=== PATIENT | female | born 1960 | race Hispanic/Latino ===

== ENCOUNTER 2019-03-14 20:15 | Emergency (ER) | payer BC ==
--- OUTSIDE RECORDS SUMMARY | 2019-03-14 20:18 | XMS REPORT ---
:1960 [facility] Address [address] [place] [address] Dr. Duran [address] [place] [id number] Care Team Providers Name Role Phone Unavailable Unavailable Unavailable Problems This patient has no known problems. Allergies, Adverse Reactions, Alerts This patient has no known allergies or adverse reactions. Medications This patient has no known medications.
[2019-03-14] MEDS ORDERED: HYDROCOD 2.5mg-ACETAMIN 108mg/5mL Soln ONE (21:07)
--- NOTE | 2019-03-14 22:04 | ER ---
Nurse's Notes [facility] Name: Gabriela Zabala Age: 58 yrs Sex: Female : 1960 Arrival Date: 03/14/2019 Time: 20:22 Bed 18 Private MD: Diagnosis: Dysphagia, pharyngeal phase Presentation: 03/14 20:30 Presenting complaint: Patient states: I am having pain in my throat for the last 4-5 la1 months on and off but today was really bad. It lasted for about 30 minutes and I felt like I couldn't breathe. Transition of care: patient was not received from another setting of care. Onset of symptoms was March 14, 2019. Risk Assessment: Do you want to hurt yourself or someone else? Patient reports no desire to harm self or others. Initial Sepsis Screen: Does the patient meet any 2 criteria? No. Patient's initial sepsis screen is negative. Does the patient have a suspected source of infection? No. Patient's initial sepsis screen is negative. Care prior to arrival: None. 20:30 Method Of Arrival: Ambulatory la1 20:30 Acuity: DANITA 3 la1 Historical: - Allergies: 20:30 No Known Allergies; la1 - PMHx: 20:30 Hypertension; Diabetes - NIDDM; High Cholesterol; Asthma; la1 - Immunization history:: Adult Immunizations up to date. - Social history:: Smoking status: Patient/guardian denies using tobacco. - Ebola Screening: : No symptoms or risks identified at this time. Screenin:37 Abuse screen: Denies threats or abuse. Denies injuries from another. Nutritional cc3 screening: No deficits noted. Tuberculosis screening: No symptoms or risk factors identified. Fall Risk Ambulatory Aid- None/Bed Rest/Nurse Assist (0 pts). Gait- Normal/Bed Rest/Wheelchair (0 pts) Mental Status- Oriented to own ability (0 pts). Assessment: 20:37 General: Appears in no apparent distress. uncomfortable, Behavior is calm, cooperative, cc3 appropriate for age. Pain: Complains of pain in throat. Neuro: Level of Consciousness is awake, alert, obeys commands, Oriented to person, place, time, situation, Appropriate for age. Cardiovascular: Denies chest pain, Capillary refill < 3 seconds Patient's skin is warm and dry. Respiratory: Airway is patent Respiratory effort is even, unlabored, Respiratory pattern is regular, symmetrical, Breath sounds are clear bilaterally. GI: Abdomen is round. : No signs and/or symptoms were reported regarding the genitourinary system. EENT: Throat with gag reflex present. Derm: Skin is intact, is healthy with good turgor, Skin is pink, warm \T\ dry. normal. Musculoskeletal: Circulation, motion, and sensation intact. Range of motion: intact in all extremities. 21:29 Reassessment: Patient appears in no apparent distress at this time. Patient and/or cc3 family updated on plan of care and expected duration. Pain level reassessed. Patient is alert, oriented x 3, equal unlabored respirations, skin warm/dry/pink. natural gas technician came to do ultrasound bedside. 22:45 Reassessment: Patient appears in no apparent distress at this time. Patient and/or cc3 family updated on plan of care and expected duration. Pain level reassessed. Patient is alert, oriented x 3, equal unlabored respirations, skin warm/dry/pink. GINNA Fry discharged the patient home with prescription given. No IV cannula in situ. Patient left ER vitally stable and ambulatory. No valuables left in the patient's room. Patient denies pain at this time. Patient states feeling better. Patient states symptoms have improved. Vital Signs: 20:28 BP 145 / 75; Pulse 89; Resp 16; Temp 97.6; Pulse Ox 98% on R/A; Weight 71.67 kg; Height la1 4 ft. 11 in. (149.86 cm); 21:45 BP 108 / 61; Pulse 79; Resp 17 S; Pulse Ox 96% on R/A; cc3 22:30 BP 115 / 68; Pulse 85; Resp 16 S; Pulse Ox 98% on R/A; cc3 20:28 Body Mass Index 31.91 (71.67 kg, 149.86 cm) la1 ED Course: 20:22 Patient arrived in ED. am2 20:22 Lisandra Rivas [facility]-C [facility]. snw 20:22 Pavel Heck MD is Attending Physician. snw 20:28 Arm band placed on left wrist. la1 20:31 Triage completed. la1 20:37 Cami Tamayo is Primary Nurse. cc3 20:37 Patient has correct armband on for positive identification. Bed in low position. Call cc3 light in reach. Side rails up X 1. Pulse ox on. NIBP on. 21:59 Ultrasound completed. Patient tolerated well. Notified COMMUNITY DEVELOPMENT SPECIALIST/LAURENCE fry. sg3 21:59 Mary Jade MD is Referral Physician. snw 22:03 Thyroid Para Parotid Gland In Process Unspecified. EDMS 22:45 No provider procedures requiring assistance completed. Patient did not have IV access cc3 during this emergency room visit. Administered Medications: 20:50 Drug: Lortab Liquid 10 ml Route: PO; cc3 21:26 Follow up: Response: No adverse reaction; Pain is decreased cc3 Outcome: 22:00 Discharge ordered by . snw 22:45 Discharged to home ambulatory. cc3 22:45 Condition: stable 22:45 Discharge instructions given to patient, Instructed on discharge instructions, follow up and referral plans. medication usage, Demonstrated understanding of instructions, follow-up care, medications, Prescriptions given X 1. 22:46 Patient left the ED. cc3 Signatures: Dispatcher [employer] EDSD Lisandra Rivas, POULTRY AND FISH BUTCHER-C POULTRY AND FISH BUTCHER-Csnw Rosalio Lovell, RN RN Danna Ramirez Sarah sg3 Cami Tamayo cc3
--- NOTE | 2019-03-14 22:04 | EDPHYS ---
Physician Documentation [facility] Name: Gabriela Zabala Age: 58 yrs Sex: Female : 1960 Arrival Date: 03/14/2019 Time: 20:22 Bed 18 Private MD: ED Physician Pavel Heck HPI: 03/14 21:12 This 58 yrs old Female presents to ER via Ambulatory with complaints of Sore snw Throat, Ear Pain. 21:12 The patient presents with sore throat, dysphagia, of both solids and liquids. The snw patient describes throat pain as suffocating. Onset: The symptoms/episode began/occurred 4 month(s) ago. Severity of symptoms: At their worst the symptoms were moderate, severe. Associated signs and symptoms: Pertinent positives: Sore throat. The patient has experienced similar episodes in the past. The patient has not recently seen a physician. Historical: - Allergies: 20:30 No Known Allergies; la1 - PMHx: 20:30 Hypertension; Diabetes - NIDDM; High Cholesterol; Asthma; la1 - Immunization history:: Adult Immunizations up to date. - Social history:: Smoking status: Patient/guardian denies using tobacco. - Ebola Screening: : No symptoms or risks identified at this time. ROS: 21:10 Constitutional: Negative for fever, chills, and weight loss, Eyes: Negative for injury, snw pain, redness, and discharge, Neck: Negative for injury, pain, and swelling, Cardiovascular: Negative for chest pain, palpitations, and edema, Respiratory: Negative for shortness of breath, cough, wheezing, and pleuritic chest pain, Abdomen/GI: Negative for abdominal pain, nausea, vomiting, diarrhea, and constipation, Back: Negative for injury and pain, : Negative for injury, bleeding, discharge, and swelling, MS/Extremity: Negative for injury and deformity, Skin: Negative for injury, rash, and discoloration, Neuro: Negative for headache, weakness, numbness, tingling, and seizure, Psych: Negative for depression, anxiety, suicide ideation, homicidal ideation, and hallucinations. 21:10 ENT: Positive for difficulty swallowing, sore throat, intermittently for several months. Exam: 21:07 Constitutional: This is a well developed, well nourished patient who is awake, alert, snw and in no acute distress. Head/Face: Normocephalic, atraumatic. Eyes: Pupils equal round and reactive to light, extra-ocular motions intact. Lids and lashes normal. Conjunctiva and sclera are non-icteric and not injected. Cornea within normal limits. Periorbital areas with no swelling, redness, or edema. Neck: Trachea midline, no thyromegaly or masses palpated, and no cervical lymphadenopathy. Supple, full range of motion without nuchal rigidity, or vertebral point tenderness. No Meningismus. Chest/axilla: Normal chest wall appearance and motion. Nontender with no deformity. No lesions are appreciated. Cardiovascular: Regular rate and rhythm with a normal S1 and S2. No gallops, murmurs, or rubs. Normal PMI, no JVD. No pulse deficits. Respiratory: Lungs have equal breath sounds bilaterally, clear to auscultation and percussion. No rales, rhonchi or wheezes noted. No increased work of breathing, no retractions or nasal flaring. Abdomen/GI: Soft, non-tender, with normal bowel sounds. No distension or tympany. No guarding or rebound. No evidence of tenderness throughout. Back: No spinal tenderness. No costovertebral tenderness. Full range of motion. Skin: Warm, dry with normal turgor. Normal color with no rashes, no lesions, and no evidence of cellulitis. MS/ Extremity: Pulses equal, no cyanosis. Neurovascular intact. Full, normal range of motion. Neuro: Awake and alert, GCS 15, oriented to person, place, time, and situation. Cranial nerves II-XII grossly intact. Motor strength 5/5 in all extremities. Sensory grossly intact. Cerebellar exam normal. Normal gait. Psych: Awake, alert, with orientation to person, place and time. Behavior, mood, and affect are within normal limits. 21:07 ENT: Ear canal(s): are normal, TM's: are normal, Nose: is normal, Mouth: Oral mucosa: normal, Tongue: is normal, Mallampatti class IV. Vital Signs: 20:28 BP 145 / 75; Pulse 89; Resp 16; Temp 97.6; Pulse Ox 98% on R/A; Weight 71.67 kg; Height la1 4 ft. 11 in. (149.86 cm); 21:45 BP 108 / 61; Pulse 79; Resp 17 S; Pulse Ox 96% on R/A; cc3 22:30 BP 115 / 68; Pulse 85; Resp 16 S; Pulse Ox 98% on R/A; cc3 20:28 Body Mass Index 31.91 (71.67 kg, 149.86 cm) la1 MDM: 20:35 Patient medically screened. snw 22:02 Data reviewed: vital signs, nurses notes. Data interpreted: Pulse oximetry: on room air snw is 96 %. Interpretation: acceptable. Counseling: I had a detailed discussion with the patient and/or guardian regarding: the historical points, exam findings, and any diagnostic results supporting the discharge/admit diagnosis, radiology results, the need for outpatient follow up, for definitive care, to return to the emergency department if symptoms worsen or persist or if there are any questions or concerns that arise at home. Special discussion: Based on the history and exam findings, there is no indication for further emergent testing or inpatient evaluation. I discussed with the patient/guardian the need to see the ENT specialist for further evaluation of the symptoms. 03/14 20:51 Order name: Thyroid Para Parotid Gland EDMS Administered Medications: 20:50 Drug: Lortab Liquid 10 ml Route: PO; cc3 21:26 Follow up: Response: No adverse reaction; Pain is decreased cc3 Disposition: 03/15 01:34 Co-signature as Attending Physician, Pavel Heck MD. pk Disposition: 03/14/19 22:00 Discharged to Home. Impression: Dysphagia, pharyngeal phase. - Condition is Stable. - Discharge Instructions: Dysphagia, Laryngoscopy. - Prescriptions for acetaminophen- codeine 120-12 mg/5 mL Oral Suspension - take 10 milliliters by ORAL route every 6 hours As needed; 120 milliliter. - Medication Reconciliation Form, Thank You Letter, Antibiotic Education, Prescription Opioid Use form. - Follow up: Emergency Department; When: As needed; Reason: Worsening of condition. Follow up: Mary Jade MD; When: 2 - 3 days; Reason: Recheck today's complaints, Continuance of care, Re-evaluation by your physician. Signatures: Dispatcher [employer] EDMS Pavel Heck MD MD pkl Lisandra Rivas, PEWTER FABRICATOR-C PEWTER FABRICATOR-Csnw Rosalio Lovell RN RN la1 Cami Tamayo cc3 Corrections: (The following items were deleted from the chart) 03/14 22:46 22:00 03/14/2019 22:00 Discharged to Home. Impression: Dysphagia, pharyngeal phase. cc3 Condition is Stable. Forms are Medication Reconciliation Form, Thank You Letter, Antibiotic Education, Prescription Opioid Use. Follow up: Emergency Department; When: As needed; Reason: Worsening of condition. Follow up: Mary Jade; When: 2 - 3 days; Reason: Recheck today's complaints, Continuance of care, Re-evaluation by your physician. snw
--- NOTE | 2019-03-15 08:22 | RAD REPORT ---
EXAM DESCRIPTION: US - Thyroid Para Parotid Gland - 03/14/2019 10:03 pm CLINICAL HISTORY: Neck pain and swelling COMPARISON: None. FINDINGS: Isthmus is 3 mm in thickness. Right lobe is 3.9 x 1.2 x 1.1 cm. Left lobe is 3.3 x 1.1 x 1 .3 cm. Thyroid tissue is homogeneous. No focal mass. No mass or lymphadenopathy in the adjacent soft tissues. IMPRESSION: Negative thyroid ultrasound.
== END 2019-03-14 22:46 | disposition home or self-care (01) ==
LOC: ER 20:15
DX: R13.13 Dysphagia, pharyngeal phase (principal); I10 Essential (primary) hypertension; E11.9 Type 2 diabetes mellitus without complications; E78.00 Pure hypercholesterolemia, unspecified
CPT/HCPCS: 76536; 99284

== ENCOUNTER 2019-04-05 08:36 | Emergency (ER) | payer BC ==
--- OUTSIDE RECORDS SUMMARY | 2019-04-05 08:38 | XMS REPORT ---
:1960 [facility] Address [address] [place] [address] Dr. Duran [address] [place] [id number] Care Team Providers Name Role Phone Unavailable Unavailable Unavailable Problems This patient has no known problems. Allergies, Adverse Reactions, Alerts This patient has no known allergies or adverse reactions. Medications This patient has no known medications.
[2019-04-05] MEDS ORDERED: NA CHLORIDE 0.9% 500 ML ONE (09:31)
[2019-04-05 09:32] LABS: Absolute Lymphocytes (CBC) 1.7 K/uL (0.7-4.9); Basophils % 0.3 % (0-1.3); Hematocrit 41.4 % (36.0-45.0); Lymphocytes % 26.2 % (15.3-44.8); RBC Red Blood Cell Count 4.65 M/uL (3.86-4.86)
--- NOTE | 2019-04-05 09:52 | RAD REPORT ---
EXAM DESCRIPTION: RAD - Chest Single View - 04/05/2019 9:32 am CLINICAL HISTORY: Cough, chest and neck pain COMPARISON: September 2016 TECHNIQUE: AP portable chest image was obtained 0930 hours . FINDINGS: Lungs are clear. Heart and vasculature are normal. No measurable pleural effusion and no p neumothorax. No acute bony abnormality seen. No acute aortic findings suspected. IMPRESSION: No acute cardiopulmonary process. No suspicious interval change.
[2019-04-05 09:55] LABS: ALT/SGPT 26 U/L (12-78); AST/SGOT 18 U/L (15-37); Albumin 3.4 g/dL (3.4-5.0); Alkaline Phosphatase 114 U/L (45-117); BUN Blood Urea Nitrogen 15 mg/dL (7-18); Bicarbonate 25 mmol/L (21-32); Bilirubin Total 0.3 mg/dL (0.2-1.0); Glucose Level 224 mg/dL (74-106); Potassium 3.8 mmol/L (3.5-5.1); Protein, Total 7.7 g/dL (6.4-8.2); Sodium Level 140 mmol/L (136-145); Troponin (Emerg Dept Use Only) < 0.02 ng/mL (0.0-0.045)
[2019-04-05 10:06] LABS: Blood Morphology Comment NOT SEEN (NOT SEEN); Platelet Estimate ADEQ
--- NOTE | 2019-04-05 10:40 | RAD REPORT ---
EXAM DESCRIPTION: CT - Soft Tissue Neck W/Contr - 04/05/2019 10:12 am CLINICAL HISTORY: Episodic anterior throat and neck pain TECHNIQUE: During dynamic enhancement using 100 milliliters nonionic IV contrast, axial 5 millimeter thick images of the neck were obtained. All CT scans are performed using dose optimization technique as appropriate and may include automated exposure control or mA/KV adjustment according to patient size. FINDINGS: Intracranial portion of the examination is unremarkable. Mastoid air cells are clear. Mini mal mucosal thickening with no air-fluid level. No globe or orbital content abnormality. No pharyngeal mucosal mass or asymmetry. Tonsils and tongue base within normal limits. Parapharyngeal fat is normal. Soft palate shows no mass or asymmetry. No epiglottis thickening. No laryngeal mass o r asymmetry. The parotid, submandibular and thyroid gland tissue show no suspicious finding. No abnormal lymphadenopathy or mass in the soft tissues of the neck. A few small sub centimeter nonsp ecific lymph nodes are present. No significant vascular abnormality. Carotid bulb calcifications are present. The patient is edentulous. Small air densities adjacent to the mandible and maxilla are likely relate d to dentures. Infection or inflammatory changes to the soft tissues covering the mandible and and ma xilla are not excluded but can be correlated with clinical exam findings. No mass or asymmetry at the floor the mouth. No gross abnormality of the cervical esophagus. CT assessment is limited. IMPRESSION: Contrast enhanced CT neck imaging showing no significant or suspicious finding. Small fluid and air densities adjacent to the edentulous mandible and maxilla may be related to dentu res. Infectious/inflammatory etiologies are lesser in likelihood but possible and can be correlated w ith clinical exam findings.
[2019-04-05] MEDS ORDERED: CEFTRIAXONE/SWI 1gm 1 GM/10 ML SYR ONE (10:49)
--- NOTE | 2019-04-05 10:51 | ER ---
Nurse's Notes [facility] Name: Gabriela Zabala Age: 58 yrs Sex: Female : 1960 Arrival Date: 04/05/2019 Time: 08:40 Bed 20 Private MD: Navid Gordon R Diagnosis: Chronic pharyngitis;Tobacco abuse counseling;Tobacco use;Type 2 diabetes mellitus Presentation: 04/05 08:45 Presenting complaint: Patient states: anterior neck and throat pain with pressure that ss has been episodic x 1 year. Patient reports it just keeps getting worse. Was seen in ER about a month ago for the same complaints and given a medication which helped, but is out. ENT f/u appt is April 23. Transition of care: patient was not received from another setting of care. Acute neurological deficit: none identified. Onset of symptoms is unknown. Risk Assessment: Do you want to hurt yourself or someone else? Patient reports no desire to harm self or others. Initial Sepsis Screen: Does the patient meet any 2 criteria? RR > 20 per min. Does the patient have a suspected source of infection? No. Patient's initial sepsis screen is negative. Care prior to arrival: None. 08:45 Method Of Arrival: Ambulatory ss 08:45 Acuity: DANITA 3 ss 08:48 Note Patient reports that when the pain occurs, she becomes very anxious. ss Historical: - Allergies: 08:47 No Known Allergies; ss - PMHx: 08:47 Asthma; Diabetes - NIDDM; High Cholesterol; Hypertension; ss - Immunization history:: Adult Immunizations unknown. - Social history:: Smoking status: Patient uses tobacco products, smokes one-half pack cigarettes per day. - Ebola Screening: : Patient denies exposure to infectious person Patient denies travel to an Ebola-affected area in the 21 days before illness onset. - Family history:: not pertinent. Screenin:00 Fall Risk None identified. em 09:08 Abuse screen: Denies threats or abuse. Denies injuries from another. Nutritional ss screening: No deficits noted. Tuberculosis screening: Never had TB. Assessment: 09:00 General: Appears in no apparent distress. comfortable, Behavior is calm, cooperative, em Denies fever. Pain: Complains of pain in neck Pain currently is 3 out of 10 on a pain scale. Neuro: Level of Consciousness is awake, alert, obeys commands, Oriented to person, place, time, situation, [employer] are equal bilaterally Moves all extremities. Gait is steady, Speech is normal. Cardiovascular: Denies chest pain, nausea, shortness of breath, vomiting, Capillary refill < 3 seconds Patient's skin is warm and dry. Chest pain is denied. Respiratory: Airway is patent Respiratory effort is even, unlabored, Respiratory pattern is regular, symmetrical, Breath sounds are clear bilaterally. Denies cough, shortness of breath at rest. GI: Abdomen is round non-distended. EENT: Reports pain when swallowing Denies difficulty swallowing. Derm: Skin is intact, is healthy with good turgor, Skin is pink, warm \T\ dry. Musculoskeletal: Capillary refill < 3 seconds, Range of motion: intact in all extremities. 09:05 General: The previous assessment is accurate, call light remains within reach. ss 10:06 Reassessment: Patient appears in no apparent distress at this time. wheeled to CT via em wheelchair. 10:48 Reassessment: Patient appears in no apparent distress at this time. Patient and/or em family updated on plan of care and expected duration. Pain level reassessed. Patient is alert, oriented x 3, equal unlabored respirations, skin warm/dry/pink. Patient states feeling better. Vital Signs: 08:47 BP 186 / 91; Pulse 60; Resp 21; Temp 98.0(O); Pulse Ox 100% on R/A; Weight 71.67 kg; ss Height 4 ft. 11 in. (149.86 cm); Pain 10/10; 09:30 BP 158 / 63; Pulse 77; Resp 16; Pulse Ox 100% on R/A; em 10:44 BP 145 / 67; Pulse 75; Resp 18; Pulse Ox 99% on R/A; Pain 3/10; em 08:47 Body Mass Index 31.91 (71.67 kg, 149.86 cm) ED Course: 08:40 Patient arrived in ED. as 08:41 Navid Gordon MD is Private Physician. as 08:42 Raffi Jones MD is Attending Physician. day 08:44 Elías Betancourt LVN is Primary Nurse. em 08:47 Triage completed. ss 08:47 Arm band placed on right wrist. ss 09:00 Patient has correct armband on for positive identification. Placed in gown. Bed in low em position. Call light in reach. Pulse ox on. NIBP on. 09:16 Radiology exam delayed due to lab results not completed at this time. (BUN/Creatinine). bq 09:33 Chest Single View XRAY In Process Unspecified. EDMS 09:45 Initial lab(s) drawn, by me, sent to lab. Inserted saline lock: 20 gauge in right em forearm, using aseptic technique. Blood collected. 10:06 CT completed. Patient tolerated procedure well. Patient moved back from CT. bq 10:15 Soft Tissue Neck W/Contr CT In Process Unspecified. EDMS 10:50 Navid Gordon MD is Referral Physician. day 10:50 Mary Jade MD is Referral Physician. day 11:18 No provider procedures requiring assistance completed. IV discontinued, intact, em bleeding controlled, No redness/swelling at site. Pressure dressing applied. Administered Medications: 09:25 Drug: NS 0.9% 500 ml Route: IV; Rate: bolus; Site: right forearm; em 11:18 Follow up: IV Status: Completed infusion; IV Intake: 500ml em 10:45 Drug: Rocephin 1 grams Route: IV; Rate: per protocol; Site: right forearm; ss 11:17 Follow up: Response: No adverse reaction; IV Status: Completed infusion; IV Intake: 10mlem Intake: 11:17 IV: 10ml; Total: 10ml. em 11:18 IV: 500ml; Total: 510ml. em Outcome: 10:50 Discharge ordered by . [facility] 11:21 Discharged to home ambulatory. em 11:21 Condition: good 11:21 Discharge instructions given to patient, Instructed on discharge instructions, follow up and referral plans. medication usage, Demonstrated understanding of instructions, follow-up care, medications, Prescriptions given X 1. 11:21 Patient left the ED. em Signatures: Dispatcher [employer] Raffi Jimenez MD MD cha Quilty, Betty bq Munoz, Edgar, DIRECTOR OF MAINTENANCE DIRECTOR OF MAINTENANCE Korin Chun Shelby, ALANIS RN ss
--- NOTE | 2019-04-05 10:52 | EDPHYS ---
Physician Documentation [facility] Name: Gabriela Zabala Age: 58 yrs Sex: Female : 1960 Arrival Date: 04/05/2019 Time: 08:40 Bed 20 Private MD: Navid Gordon R ED Physician Raffi Jones HPI: 04/05 09:11 This 58 yrs old Female presents to ER via Ambulatory with complaints of Neck day Pain, >24Hrs Old. 09:11 The patient or guardian complains of pain, that is chronic. The symptoms are located on day the chin, right jaw and left jaw. Onset: The symptoms/episode began/occurred 1 year(s) ago. Context: The problem was sustained at an unknown location. Associated signs and symptoms: The patient has no apparent associated signs or symptoms. The pain does not radiate. Severity of symptoms: At their worst the symptoms were mild, in the emergency department the symptoms are actually worse, mildly. The patient has experienced similar episodes in the past, multiple times, chronically. Historical: - Allergies: 08:47 No Known Allergies; ss - PMHx: 08:47 Asthma; Diabetes - NIDDM; High Cholesterol; Hypertension; ss - Immunization history:: Adult Immunizations unknown. - Social history:: Smoking status: Patient uses tobacco products, smokes one-half pack cigarettes per day. - Ebola Screening: : Patient denies exposure to infectious person Patient denies travel to an Ebola-affected area in the 21 days before illness onset. - Family history:: not pertinent. ROS: 09:11 Constitutional: Negative for fever, chills, and weight loss, Eyes: Negative for injury, day pain, redness, and discharge, ENT: Negative for injury, pain, and discharge, Cardiovascular: Negative for chest pain, palpitations, and edema, Respiratory: Negative for shortness of breath, cough, wheezing, and pleuritic chest pain, Abdomen/GI: Negative for abdominal pain, nausea, vomiting, diarrhea, and constipation, Back: Negative for injury and pain, : Negative for injury, bleeding, discharge, and swelling, MS/Extremity: Negative for injury and deformity, Skin: Negative for injury, rash, and discoloration, Neuro: Negative for headache, weakness, numbness, tingling, and seizure, Psych: Negative for depression, anxiety, suicide ideation, homicidal ideation, and hallucinations, Allergy/Immunology: Negative for hives, rash, and allergies, Endocrine: Negative for neck swelling, polydipsia, polyuria, polyphagia, and marked weight changes, Hematologic/Lymphatic: Negative for swollen nodes, abnormal bleeding, and unusual bruising. 09:11 Neck: Positive for pain with movement, swollen nodes, tenderness, of the chin, right jaw and left jaw. Exam: 09:11 Constitutional: This is a well developed, well nourished patient who is awake, alert, day and in no acute distress. Head/Face: Normocephalic, atraumatic. Eyes: Pupils equal round and reactive to light, extra-ocular motions intact. Lids and lashes normal. Conjunctiva and sclera are non-icteric and not injected. Cornea within normal limits. Periorbital areas with no swelling, redness, or edema. ENT: Nares patent. No nasal discharge, no septal abnormalities noted. Tympanic membranes are normal and external auditory canals are clear. Oropharynx with no redness, swelling, or masses, exudates, or evidence of obstruction, uvula midline. Mucous membranes moist. Chest/axilla: Normal chest wall appearance and motion. Nontender with no deformity. No lesions are appreciated. Cardiovascular: Regular rate and rhythm with a normal S1 and S2. No gallops, murmurs, or rubs. Normal PMI, no JVD. No pulse deficits. Respiratory: Lungs have equal breath sounds bilaterally, clear to auscultation and percussion. No rales, rhonchi or wheezes noted. No increased work of breathing, no retractions or nasal flaring. Abdomen/GI: Soft, non-tender, with normal bowel sounds. No distension or tympany. No guarding or rebound. No evidence of tenderness throughout. Back: No spinal tenderness. No costovertebral tenderness. Full range of motion. Skin: Warm, dry with normal turgor. Normal color with no rashes, no lesions, and no evidence of cellulitis. MS/ Extremity: Pulses equal, no cyanosis. Neurovascular intact. Full, normal range of motion. Neuro: Awake and alert, GCS 15, oriented to person, place, time, and situation. Cranial nerves II-XII grossly intact. Motor strength 5/5 in all extremities. Sensory grossly intact. Cerebellar exam normal. Normal gait. Psych: Awake, alert, with orientation to person, place and time. Behavior, mood, and affect are within normal limits. 09:11 Neck: External neck: is normal, no acute changes, C-spine: appears grossly normal, no acute changes, Thyroid: appears normal, no acute changes, Trachea: is midline with no obvious abnormalities, no acute changes, ROM/movement: is normal, no acute changes, pain, is not appreciated, limited range of motion, is not appreciated, Meningeal signs: are not present, Kernig's sign is negative, Brudzinski's sign is negative, nuchal rigidity, is not appreciated, Lymph nodes: no appreciated lymphadenopathy. Vital Signs: 08:47 BP 186 / 91; Pulse 60; Resp 21; Temp 98.0(O); Pulse Ox 100% on R/A; Weight 71.67 kg; ss Height 4 ft. 11 in. (149.86 cm); Pain 10/10; 09:30 BP 158 / 63; Pulse 77; Resp 16; Pulse Ox 100% on R/A; em 10:44 BP 145 / 67; Pulse 75; Resp 18; Pulse Ox 99% on R/A; Pain 3/10; em 08:47 Body Mass Index 31.91 (71.67 kg, 149.86 cm) ss MDM: 08:42 Patient medically screened. [facility] 09:14 Data reviewed: vital signs, nurses notes, lab test result(s), EKG, radiologic studies, [facility] CT scan, plain films. 04/05 09:10 Order name: CBC with Manual Differential; Complete Time: 10:20 04/05 09:10 Order name: Comprehensive Metabolic Panel; Complete Time: 09:56 04/05 09:10 Order name: Soft Tissue Neck W/Contr CT; Complete Time: 10:52 04/05 09:11 Order name: Chest Single View XRAY; Complete Time: 09:54 [facility] 04/05 09:11 Order name: Troponin (emerg Dept Use Only); Complete Time: 09:56 [facility] 04/05 09:11 Order name: EKG; Complete Time: 09:13 [facility] 04/05 09:11 Order name: EKG - Nurse/Tech; Complete Time: 09:43 [facility] Administered Medications: 09:25 Drug: NS 0.9% 500 ml Route: IV; Rate: bolus; Site: right forearm; em 11:18 Follow up: IV Status: Completed infusion; IV Intake: 500ml em 10:45 Drug: Rocephin 1 grams Route: IV; Rate: per protocol; Site: right forearm; ss 11:17 Follow up: Response: No adverse reaction; IV Status: Completed infusion; IV Intake: 10mlem Disposition: 04/05/19 10:50 Discharged to Home. Impression: Chronic pharyngitis, Tobacco abuse counseling, Tobacco use, Type 2 diabetes mellitus. - Condition is Stable. - Discharge Instructions: Type 2 Diabetes Mellitus, Diagnosis, Adult, Pharyngitis, Steps to Quit Smoking, Smoking Hazards, Sore Throat, Steps to Quit Smoking, [id number]ert, Type 2 Diabetes Mellitus, Diagnosis, Adult, [id number]. - Prescriptions for Augmentin 875- 125 mg Oral Tablet - take 1 tablet by ORAL route every 12 hours for 10 days; 14 tablet. - Medication Reconciliation Form, Thank You Letter, Antibiotic Education, Prescription Opioid Use form. - Follow up: Navid Gordon; When: 2 - 3 days; Reason: Recheck today's complaints, Continuance of care, Re-evaluation by your physician. Follow up: Mary Jade MD; When: 2 - 3 days; Reason: Recheck today's complaints, Re-evaluation by your physician. - Problem is new. - Symptoms have improved. Signatures: Dispatcher [employer] Raffi Jimenez MD MD cha Munoz, Edgar, DEVELOPER [employer]STER[employer] DEVELOPER [employer] Bere Zavala RN RN ss Corrections: (The following items were deleted from the chart) 10:50 10:50 04/05/2019 10:50 Discharged to Home. Impression: Chronic pharyngitis; Tobacco day abuse counseling; Tobacco use; Type 2 diabetes mellitus. Condition is Stable. Discharge Instructions: Pharyngitis, Steps to Quit Smoking, Smoking Hazards, Sore Throat, Steps to Quit Smoking, [id number], Type 2 Diabetes Mellitus, Diagnosis, Adult, Type 2 Diabetes Mellitus, Diagnosis, Adult, [id number]. Prescriptions for Augmentin 875-125 mg Oral Tablet - take 1 tablet by ORAL route every 12 hours for 10 days; 14 tablet. and Forms are Medication Reconciliation Form, Thank You Letter, Antibiotic Education, Prescription Opioid Use. Follow up: Navid Gordon; When: 2 - 3 days; Reason: Recheck today's complaints, Continuance of care, Re-evaluation by your physician. Problem is new. Symptoms have improved. [facility] 11:21 10:50 04/05/2019 10:50 Discharged to Home. Impression: Chronic pharyngitis; Tobacco em abuse counseling; Tobacco use; Type 2 diabetes mellitus. Condition is Stable. Discharge Instructions: Pharyngitis, Steps to Quit Smoking, Smoking Hazards, Sore Throat, Steps to Quit Smoking, [id number], Type 2 Diabetes Mellitus, Diagnosis, Adult, Type 2 Diabetes Mellitus, Diagnosis, Adult, [id number]. Prescriptions for Augmentin 875-125 mg Oral Tablet - take 1 tablet by ORAL route every 12 hours for 10 days; 14 tablet. and Forms are Medication Reconciliation Form, Thank You Letter, Antibiotic Education, Prescription Opioid Use. Follow up: Navid Gordon; When: 2 - 3 days; Reason: Recheck today's complaints, Continuance of care, Re-evaluation by your physician. Follow up: Mary Jade; When: 2 - 3 days; Reason: Recheck today's complaints, Re-evaluation by your physician. Problem is new. Symptoms have improved. [facility]
--- NOTE | 2019-04-05 21:14 | EKG ---
Test Date: 2019-04-05 Test Time: 09:36:32 Sas Analyst: MARLIN MEASUREMENT RESULTS: Intervals: Rate: 71 FL: 166 QRSD: 86 QT: 412 QTc: 447 [place]: P: 44 FL: 166 QRS: 46 T: 60 INTERPRETIVE STATEMENTS: Normal sinus rhythm Normal ECG Compared to ECG 07/23/2015 15:42:54 Prolonged QT interval no longer present Electronically Signed On 04-05-19 21:13:25 CDT by Ezio Unger
== END 2019-04-05 11:21 | disposition home or self-care (01) ==
LOC: ER 08:36
DX: J31.2 Chronic pharyngitis (principal); E11.9 Type 2 diabetes mellitus without complications; Z72.0 Tobacco use; Z71.6 Tobacco abuse counseling
CPT/HCPCS: 36415; 70491; 71045; 80053; 84484; 85025; 93005; 96361; 96365; 99284; J0696; Q9967

== ENCOUNTER 2019-08-07 19:41 | Emergency (ER) | payer BC, OTHER ==
--- OUTSIDE RECORDS SUMMARY | 2019-08-07 19:43 | XMS REPORT ---
:1960 [facility] [address] [place] [address] Dr. Duran [address] [place] [id number] Care Team Providers Name Role Phone Unavailable Unavailable Unavailable Problems This patient has no known problems. Allergies, Adverse Reactions, Alerts This patient has no known allergies or adverse reactions. Medications This patient has no known medications.
--- NOTE | 2019-08-07 22:48 | RAD REPORT ---
EXAM DESCRIPTION: Shereen Single View08/07/2019 10:39 pm CLINICAL HISTORY: Chest pain COMPARISON: 03/2019 FINDINGS: The lungs appear clear of acute infiltrate. The heart is normal size IMPRESSION: No acute abnormalities displayed
[2019-08-07 23:19] LABS: Absolute Lymphocytes (CBC) 2.3 K/uL (0.7-4.9); Basophils % 0.2 % (0-1.3); Hematocrit 42.5 % (36.0-45.0); Lymphocytes % 37.6 % (15.3-44.8); MPV 8.2 fL (7.6-11.3); Protime INR 1.04; RBC Red Blood Cell Count 4.88 M/uL (3.86-4.86)
[2019-08-07] MEDS ORDERED: NA CHLORIDE 0.9% 1,000 ML ONE (23:23)
[2019-08-07] MEDS ORDERED: MECLIZINE HCL 12.5 MG TAB ONE (23:23)
[2019-08-07 23:45] LABS: ALT/SGPT 29 U/L (12-78); AST/SGOT 4 U/L (15-37); Albumin 3.7 g/dL (3.4-5.0); Alkaline Phosphatase 154 U/L (45-117); BUN Blood Urea Nitrogen 20 mg/dL (7-18); Bicarbonate 27 mmol/L (21-32); Bilirubin Direct 0.1 mg/dL (0-0.2); Bilirubin Total 0.3 mg/dL (0.2-1.0); Glucose Level 337 mg/dL (74-106); NT PRO-BNP 23 pg/mL (<125); Potassium 3.9 mmol/L (3.5-5.1); Protein, Total 8.4 g/dL (6.4-8.2); Sodium Level 134 mmol/L (136-145); Troponin (Emerg Dept Use Only) < 0.02 ng/mL (0.0-0.045)
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
--- NOTE | 2019-08-08 01:34 | EDPHYS ---
Physician Documentation [facility] Name: Gabriela Zabala Age: 59 yrs Sex: Female : 1960 Arrival Date: 08/07/2019 Time: 19:49 Bed 15 Private MD: ED Physician Raffi Jones HPI: 08/07 23:17 This 59 yrs old Female presents to ER via Ambulatory with complaints of day Dizziness. 23:17 The patient presents with dizziness, generalized weakness. Onset: The symptoms/episode day began/occurred 5 day(s) ago. Context: occurred at an unknown location. Modifying factors: The symptoms are alleviated by closing eyes, holding head still, lying down, the symptoms are aggravated by movement of head, standing up, changing position. Associated signs and symptoms: The patient has no apparent associated signs or symptoms. Severity of symptoms: At their worst the symptoms were mild moderate in the emergency department the symptoms are unchanged. Patient's baseline: Neuro: alert and fully oriented. The patient has not experienced similar symptoms in the past. Historical: - Allergies: 20:37 No Known Allergies; jd3 - Home Meds: 20:37 Metformin Oral [Active]; atorvastatin oral oral [Active]; losartan oral oral [Active]; jd3 clopidogrel oral oral [Active]; [facility] [place] Aspirin oral oral [Active]; - PMHx: 20:37 Asthma; Diabetes - NIDDM; High Cholesterol; Hypertension; jd3 - PSHx: 20:37 Knee surgery; Tubal ligation; jd3 - Immunization history:: Adult Immunizations not up to date. - Social history:: Smoking status: Patient uses tobacco products, smokes one pack cigarettes per day. - Ebola Screening: : Patient negative for fever greater than or equal to 101.5 degrees Fahrenheit, and additional compatible Ebola Virus Disease symptoms. - Family history:: not pertinent. ROS: 23:17 Constitutional: Negative for fever, chills, and weight loss, Eyes: Negative for injury, day pain, redness, and discharge, ENT: Negative for injury, pain, and discharge, Neck: Negative for injury, pain, and swelling, Cardiovascular: Negative for chest pain, palpitations, and edema, Respiratory: Negative for shortness of breath, cough, wheezing, and pleuritic chest pain, Abdomen/GI: Negative for abdominal pain, nausea, vomiting, diarrhea, and constipation, Back: Negative for injury and pain, : Negative for injury, bleeding, discharge, and swelling, MS/Extremity: Negative for injury and deformity, Skin: Negative for injury, rash, and discoloration, Psych: Negative for depression, anxiety, suicide ideation, homicidal ideation, and hallucinations, Allergy/Immunology: Negative for hives, rash, and allergies, Endocrine: Negative for neck swelling, polydipsia, polyuria, polyphagia, and marked weight changes, Hematologic/Lymphatic: Negative for swollen nodes, abnormal bleeding, and unusual bruising. 23:17 Neuro: Positive for dizziness, weakness. Exam: 23:17 Constitutional: This is a well developed, well nourished patient who is awake, alert, day and in no acute distress. Head/Face: Normocephalic, atraumatic. Eyes: Pupils equal round and reactive to light, extra-ocular motions intact. Lids and lashes normal. Conjunctiva and sclera are non-icteric and not injected. Cornea within normal limits. Periorbital areas with no swelling, redness, or edema. ENT: Nares patent. No nasal discharge, no septal abnormalities noted. Tympanic membranes are normal and external auditory canals are clear. Oropharynx with no redness, swelling, or masses, exudates, or evidence of obstruction, uvula midline. Mucous membranes moist. Neck: Trachea midline, no thyromegaly or masses palpated, and no cervical lymphadenopathy. Supple, full range of motion without nuchal rigidity, or vertebral point tenderness. No Meningismus. Chest/axilla: Normal chest wall appearance and motion. Nontender with no deformity. No lesions are appreciated. Cardiovascular: Regular rate and rhythm with a normal S1 and S2. No gallops, murmurs, or rubs. Normal PMI, no JVD. No pulse deficits. Respiratory: Lungs have equal breath sounds bilaterally, clear to auscultation and percussion. No rales, rhonchi or wheezes noted. No increased work of breathing, no retractions or nasal flaring. Abdomen/GI: Soft, non-tender, with normal bowel sounds. No distension or tympany. No guarding or rebound. No evidence of tenderness throughout. Back: No spinal tenderness. No costovertebral tenderness. Full range of motion. Skin: Warm, dry with normal turgor. Normal color with no rashes, no lesions, and no evidence of cellulitis. MS/ Extremity: Pulses equal, no cyanosis. Neurovascular intact. Full, normal range of motion. Neuro: Awake and alert, GCS 15, oriented to person, place, time, and situation. Cranial nerves II-XII grossly intact. Motor strength 5/5 in all extremities. Sensory grossly intact. Cerebellar exam normal. Normal gait. Psych: Awake, alert, with orientation to person, place and time. Behavior, mood, and affect are within normal limits. 23:17 Eyes: Periorbital structures: appear normal, no acute changes, Pupils: no acute changes, equal, round, and reactive to light and accomodation, Extraocular movements: intact throughout, Conjunctiva: normal, no acute changes, Corneas: are normal, no acute changes, Sclera: no appreciated abnormality, no acute changes, Anterior chamber: normal, no acute changes, Lids and lashes: appear normal, no evidence of trauma, Nystagmus: is not appreciated, no acute changes. Vital Signs: 20:38 BP 156 / 85; Pulse 85; Resp 17 S; Temp 97.9(TE); Pulse Ox 97% on R/A; Weight 72.57 kg jd3 (R); Height 4 ft. 11 in. (149.86 cm) (R); Pain 3/10; 23:15 BP 168 / 80; Pulse 84; Resp 18; Pulse Ox 97% on R/A; aj1 08/08 00:43 BP 147 / 93; Pulse 82; Resp 18; Pulse Ox 98% on R/A; aj1 01:55 BP 152 / 88; Pulse 85; Resp 18; Pulse Ox 97% on R/A; aj1 02:57 BP 148 / 82; Pulse 88; Resp 18; Pulse Ox 99% on R/A; [facility] 08/07 20:38 Body Mass Index 32.32 (72.57 kg, 149.86 cm) jd3 MDM: 08/07 22:26 Patient medically screened. [facility] 23:20 Data reviewed: vital signs, nurses notes, lab test result(s), EKG, radiologic studies, [facility] CT scan, plain films. 08/07 22:15 Order name: Basic Metabolic Panel [facility] 08/07 22:15 Order name: CBC with Diff [facility] 08/07 22:15 Order name: LFT's [facility] 08/07 22:15 Order name: Magnesium [facility] 08/07 22:15 Order name: NT PRO-BNP [facility] 08/07 22:15 Order name: PT-INR [facility] 08/07 22:15 Order name: Troponin (emerg Dept Use Only) [facility] 08/07 23:17 Order name: Urine Culture [facility] 08/07 23:20 Order name: Protime (+INR); Complete Time: 01: [facility] 08/07 23:23 Order name: CBC with Automated Diff; Complete Time: : [facility] 08/07 23:46 Order name: Basic Metabolic Panel; Complete Time: : [facility] 08/07 23:46 Order name: Liver (Hepatic) Function; Complete Time: : [facility] 08/07 23:46 Order name: Troponin (Emerg Dept Use Only); Complete Time: [facility] 08/07 23:46 Order name: NT PRO-BNP; Complete Time: : [facility] 08/07 22:15 Order name: XRAY Chest (1 view) [facility] 08/07 22:15 Order name: EKG; Complete Time: 22:17 [facility] 08/07 22:15 Order name: Cardiac monitoring; Complete Time: 22:24 [facility] 08/07 22:15 Order name: EKG - Nurse/Tech; Complete Time: 22:24 [facility] 08/07 22:15 Order name: IV Saline Lock; Complete Time: 22:51 [facility] 08/07 22:50 Order name: RAD; Complete Time: 23:16 [facility] 08/07 23:17 Order name: CT Head C Spine [facility] 08/07 23:46 Order name: Magnesium; Complete Time: :29 [facility] 08/08 00:57 Order name: Urine Dipstick--Ancillary (enter results) [facility] 08/08 02:13 Order name: Glucose, Ancillary Testing [facility] 08/08 02:45 Order name: Urine Dipstick-Ancillary [facility] 08/07 22:15 Order name: Labs collected and sent; Complete Time: 22:51 [facility] 08/07 22:15 Order name: O2 Per Protocol; Complete Time: 22:24 [facility] 08/07 22:15 Order name: O2 Sat Monitoring; Complete Time: 22:24 [facility] Administered Medications: 23:32 Drug: NS 0.9% 1000 ml Route: IV; Rate: 1 bolus; Site: right antecubital; aj08/08 02:56 Follow up: IV Status: Completed infusion; IV Intake: 1000ml 08/07 23:32 Drug: Meclizine 25 mg Route: PO; 08/08 02:56 Follow up: Response: No adverse reaction 02:22 Drug: LanTUS 30 units Route: Sub-Q; Site: left lower abdomen; 02:55 Follow up: Response: No adverse reaction :22 Drug: Aspirin Chewable Tablet 162 mg Route: PO; :55 Follow up: Response: No adverse reaction :23 Drug: Insulin Regular Human 8 units {Co-Signature: jerome (Denia Rawls RN).} Route: IVP; Site: right antecubital; 02:56 Follow up: Response: No adverse reaction; Blood sugar is lowered Point of Care Testing: Blood Glucose: Blood Glucose: 358 mg/dL; Ranges: Critical Glucose Levels:Adult <50 mg/dl or >400 mg/dl <40 mg/dl or >180 mg/dl Disposition: 08/08/19 01:32 Discharged to Home. Impression: Dizziness and giddiness, Type 2 diabetes mellitus, Essential (primary) hypertension. - Condition is Stable. - Discharge Instructions: Type 2 Diabetes Mellitus, Diagnosis, Adult, Dizziness, Hypertension, Hypertension, Arly-la-Vufr, Aspirin and Your Heart, Type 2 Diabetes Mellitus, Diagnosis, Adult, Eovg-pc-Livy, Dizziness, Ucvp-tu-Zehh, Managing Your Hypertension. - Prescriptions for Meclizine 25 mg Oral Tablet - take 1 tablet by ORAL route every 8 hours As needed; 30 tablet. - Work release form, Medication Reconciliation Form, Thank You Letter, Antibiotic Education, Prescription Opioid Use form. - Follow up: Private Physician; When: 2 - 3 days; Reason: Recheck today's complaints, Continuance of care, Re-evaluation by your physician. Follow up: Omar Dotson MD; When: 2 - 3 days; Reason: Recheck today's complaints, Re-evaluation by your physician. - Problem is new. - Symptoms have improved. Signatures: Dispatcher [employer] Keila Avila RN RN aj1 Raffi Jones MD MD cha Davies, Jonathon RN RN jd3 Denia Rawls RN bb Corrections: (The following items were deleted from the chart) :33 01:32 08/08/2019 01:32 Discharged to Home. Impression: Dizziness and giddiness; Type 2 day diabetes mellitus. Condition is Stable. Forms are Medication Reconciliation Form, Thank You Letter, Antibiotic Education, Prescription Opioid Use. Follow up: Private Physician; When: 2 - 3 days; Reason: Recheck today's complaints, Continuance of care, Re-evaluation by your physician. Problem is new. Symptoms have improved. day :34 01:33 08/08/2019 01:32 Discharged to Home. Impression: Dizziness and giddiness; Type 2 day diabetes mellitus; Essential (primary) hypertension. Condition is Stable. Forms are Medication Reconciliation Form, Thank You Letter, Antibiotic Education, Prescription Opioid Use. Follow up: Private Physician; When: 2 - 3 days; Reason: Recheck today's complaints, Continuance of care, Re-evaluation by your physician. Problem is new. Symptoms have improved. day 02:58 01:34 08/08/2019 01:32 Discharged to Home. Impression: Dizziness and giddiness; Type 2 aj1 diabetes mellitus; Essential (primary) hypertension. Condition is Stable. Forms are Medication Reconciliation Form, Thank You Letter, Antibiotic Education, Prescription Opioid Use. Follow up: Private Physician; When: 2 - 3 days; Reason: Recheck today's complaints, Continuance of care, Re-evaluation by your physician. Follow up: Omar Dotson; When: 2 - 3 days; Reason: Recheck today's complaints, Re-evaluation by your physician. Problem is new. Symptoms have improved. day
[2019-08-08] MEDS ORDERED: INSULIN -REGULAR HUMAN 50 UNIT/0.5 ML ML ONE (01:43)
[2019-08-08] MEDS ORDERED: ASPIRIN 81 MG CHEWABLE TABLET ONE (02:00)
[2019-08-08] MEDS ORDERED: INSULIN GLARGINE 100 UNITS/ML SQ ONE (02:04)
[2019-08-08 02:44] LABS: Urine Blood NEGATIVE (NEG); Urine Glucose 2+ (NEG); Urine Protein NEGATIVE (NEG); Urine pH 5.5 (5.0-7.0)
--- NOTE | 2019-08-08 08:21 | EKG ---
Test Date: 2019-08-07 Test Time: 22:17:47 Shredding Machine Operator: LMT MEASUREMENT RESULTS: Intervals: Rate: 85 MT: 150 QRSD: 88 QT: 372 QTc: 442 [place]: P: 40 MT: 150 QRS: 6 T: 61 INTERPRETIVE STATEMENTS: Normal sinus rhythm Normal ECG Compared to ECG 04/05/2019 09:36:32 No significant changes Electronically Signed On 08-08-19 08:20:49 AMBULANCE MECHANIC by Ezio Unger
[2019-08-08 09:47] VITALS: TEMP 97.9
[2019-08-08 09:53] VITALS: BP 148/82; O2SAT 99
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
== END 2019-08-08 02:58 | disposition home or self-care (01) ==
LOC: ER 19:41
DX: E11.9 Type 2 diabetes mellitus without complications (principal); I10 Essential (primary) hypertension; E78.00 Pure hypercholesterolemia, unspecified; Z79.82 Long term (current) use of aspirin; F17.210 Nicotine dependence, cigarettes, uncomplicated
CPT/HCPCS: 96361; 93005; 87088; 85025; 87086; 80048; 36415; 83735; 85610; 82947 ×2; 80076; 81003; 84484; 83880; 70450; 72125; 71045; 96372; 96374; 99284; J8597; J1815; J7030

== ENCOUNTER 2020-09-22 00:02 | Emergency (ER) | payer BC, SELFPAY ==
--- OUTSIDE RECORDS SUMMARY | 2020-09-22 00:05 | XMS REPORT | Continuity of Care Document ---
:1960 Author Organization [facility] t Address [address] [place] [address] Care Team Providers Name Role Phone Pob, Lab Main Attending Clinician Unavailable Doctor Unassigned, Name Attending Clinician Unavailable Problems This patient has no known problems. Allergies, Adverse Reactions, Alerts This patient has no known allergies or adverse reactions. Medications This patient has no known medications. Procedures This patient has no known procedures. Encounters Start End Encounter Admission Attending Care Care Encounter Source Date/Time Date/Time Type Type Clinicians Facility Department ID 2020-02-03 2020-02-03 Wire Spooler Maldonado Davidson [facility] [id number] 14:22:20 14:37:20 Visit Lab Main [place] [id number] [place] [id number] [place] [id number] [address] 2020-02-03 2020-02-03 Orders Doctor BRUNO [id number] 00:00:00 00:00:00 Only Unassigned, BENJI [id number] [place] [facility] [id number] Results This patient has no known results.
[2020-09-22] MEDS ORDERED: ONDANSETRON 4 MG/2 ML VIAL ONE (00:50)
[2020-09-22] MEDS ORDERED: MORPHINE 2 MG/ML SYR ONE (00:50)
[2020-09-22 01:11] LABS: Absolute Lymphocytes (CBC) 2.9 K/uL (0.7-4.9); Basophils % 0.6 % (0-1.3); Hematocrit 40.5 % (36.0-45.0); Lymphocytes % 38.9 % (15.3-44.8); MPV 8.1 fL (7.6-11.3); RBC Red Blood Cell Count 4.66 M/uL (3.86-4.86)
[2020-09-22 01:12] LABS: Urine Bacteria <20 /HPF (<20); Urine RBC <5 /HPF (NONE SEEN)
[2020-09-22 01:20] LABS: ALT/SGPT 14 U/L (12-78); AST/SGOT 13 U/L (15-37); Albumin 3.6 g/dL (3.4-5.0); Alkaline Phosphatase 108 U/L (45-117); BUN Blood Urea Nitrogen 21 mg/dL (7-18); Bicarbonate 25 mmol/L (21-32); Bilirubin Direct < 0.1 mg/dL (0-0.2); Bilirubin Total 0.3 mg/dL (0.2-1.0); Glucose Level 153 mg/dL (74-106); Lipase 56 U/L (73-393); Potassium 3.8 mmol/L (3.5-5.1); Protein, Total 8.1 g/dL (6.4-8.2); Sodium Level 138 mmol/L (136-145)
[2020-09-22 01:36] LABS: Urine Blood TRACE (NEG); Urine Glucose NEGATIVE (NEG); Urine Protein NEGATIVE (NEG); Urine pH 5.5 (5.0-7.0)
--- NOTE | 2020-09-22 02:31 | ER ---
Nurse's Notes [facility] Name: Gabriela Zabala Age: 60 yrs Sex: Female : 1960 Arrival Date: 09/22/2020 Time: 00:05 Bed 7 Private MD: aNvid Gordon R Diagnosis: Abdominal tenderness;Type 2 diabetes mellitus Presentation: 09/22 00:12 Chief complaint: Patient states: LEFT FLANK PAIN STARTED YESTERDAY, WITH NAUSEA. DENIES rv FEVER. NO HISTORY OF KIDNEY STONES. Coronavirus screen: Client denies travel out of the [place] in the last 14 days. Ebola Screen: No symptoms or risks identified at this time. Initial Sepsis Screen: Does the patient meet any 2 criteria? No. Patient's initial sepsis screen is negative. Does the patient have a suspected source of infection? No. Patient's initial sepsis screen is negative. Risk Assessment: Do you want to hurt yourself or someone else? Patient reports no desire to harm self or others. Onset of symptoms was September 21, 2020. 00:12 Method Of Arrival: Ambulatory rv 00:12 Acuity: DANITA 3 rv Triage Assessment: 00:13 General: Appears comfortable, Behavior is calm, cooperative. Pain: Complains of pain in rv LEFT FLANK. EENT: No signs and/or symptoms were reported regarding the EENT system. Neuro: Level of Consciousness is awake, alert, obeys commands, Oriented to person, place, time, situation. Cardiovascular: Patient's skin is warm and dry. Respiratory: Airway is patent Respiratory effort is even, unlabored, Breath sounds are clear bilaterally. Derm: Skin is intact. Historical: - Allergies: 00:20 No Known Allergies; rv - PMHx: 00:13 Asthma; Diabetes - NIDDM; High Cholesterol; Hypertension; rv - PSHx: 00:20 None; rv - Immunization history:: Adult Immunizations up to date. - Social history:: Smoking status: Patient denies any tobacco usage or history of. Screenin:14 Abuse screen: Denies threats or abuse. Denies injuries from another. Nutritional rv screening: No deficits noted. Tuberculosis screening: No symptoms or risk factors identified. Fall Risk None identified. Vital Signs: 00:19 BP 172 / 69; Pulse 93; Resp 16; Temp 98.7; Pulse Ox 99% ; Weight 72.57 kg; Height 4 ft. rv 11 in. (149.86 cm); Pain 5/10; 01:00 BP 159 / 66; Pulse 77; Resp 17; Pulse Ox 98% on R/A; rv 02:45 BP 138 / 86; Pulse 76; Resp 16; Temp 98.5; Pulse Ox 98% on R/A; rv 00:19 Body Mass Index 32.32 (72.57 kg, 149.86 cm) rv ED Course: 00:05 Patient arrived in ED. es 00:05 Navid Gordon MD is Private Physician. es 00:06 Gilson Del Rio, RN is Primary Nurse. rv 00:08 Raffi Rahman PA is PHCP. cp 00:08 Raffi Jones MD is Attending Physician. cp 00:13 Triage completed. rv 00:14 Arm band placed on right wrist. Patient placed in the treatment room, on a stretcher, rv Patient notified of wait time. 00:14 Patient has correct armband on for positive identification. Pulse ox on. NIBP on. rv 00:21 Urine Dipstick--Ancillary (enter results) Sent. ds4 00:38 Initial lab(s) drawn, by id, sent to lab. Inserted saline lock: 20 gauge in right rv antecubital area, using aseptic technique. Blood collected. by liseth. 01:44 CT Abd/Pelvis - IV Contrast Only In Process Unspecified. EDMS 02:30 Navid Gordon MD is Referral Physician. day 02:43 No provider procedures requiring assistance completed. IV discontinued, intact, ea bleeding controlled, No redness/swelling at site. Pressure dressing applied. Administered Medications: 00:38 Drug: Zofran (Ondansetron) 4 mg Route: IVP; Site: right antecubital; rv 02:44 Follow up: Response: No adverse reaction ea 00:38 Drug: morphine 2 mg Route: IVP; Site: right antecubital; rv 02:45 Follow up: Response: No adverse reaction; Marked relief of symptoms; Pain is decreased; rv RASS: Alert and Calm (0) 02:40 Drug: Pepcid 20 mg Route: IVP; Site: right antecubital; ea 02:44 Follow up: Response: Medication administered at discharge. rv Outcome: 02:31 Discharge ordered by . day 02:45 Discharged to home ambulatory. rv 02:45 Condition: good 02:45 Discharge instructions given to patient, Instructed on discharge instructions, follow up and referral plans. medication usage, Demonstrated understanding of instructions, follow-up care, medications, Prescriptions given X 3. 02:46 Patient left the ED. rv Signatures: Dispatcher [employer] Raffi Jimenez MD MD cha Salyer, Edna es Swanson, Donovan ds4 Raffi Rahman, Cindy Cotton cp, RN RN Gilson Pastor RN RN rv
--- NOTE | 2020-09-22 02:31 | EDPHYS ---
Physician Documentation [facility] Name: Gabriela Zabala Age: 60 yrs Sex: Female : 1960 Arrival Date: 09/22/2020 Time: 00:05 Bed 7 Private MD: Navid Gordon R ED Physician Raffi Jones HPI: 09/22 00:26 This 60 yrs old Female presents to ER via Ambulatory with complaints of Flank cp Pain. 00:26 The patient complains of pain in the left flank. The pain does not radiate. Onset: The cp symptoms/episode began/occurred yesterday morning. Associated signs and symptoms: Pertinent positives: nausea, Pertinent negatives: diarrhea, dysuria, fever, vomiting, constipation. Severity of pain: in the emergency department the pain is unchanged despite home interventions. Historical: - Allergies: 00:20 No Known Allergies; rv - PMHx: 00:13 Asthma; Diabetes - NIDDM; High Cholesterol; Hypertension; rv - PSHx: 00:20 None; rv - Immunization history:: Adult Immunizations up to date. - Social history:: Smoking status: Patient denies any tobacco usage or history of. ROS: 00:30 Abdomen/GI: Positive for abdominal pain, nausea, of the left upper quadrant. cp 00:30 Back: Positive for flank pain, on the left. 00:30 Eyes: Negative for injury, pain, redness, and discharge. cp 00:30 Constitutional: Negative for body aches, chills, fever, poor PO intake. 00:30 Cardiovascular: Negative for chest pain, palpitations. 00:30 Respiratory: Negative for cough, shortness of breath, wheezing. 00:30 : Negative for urinary symptoms. 00:30 Skin: Negative for cellulitis, rash. 00:30 Neuro: Negative for altered mental status, headache, weakness. 00:30 All other systems are negative. Exam: 00:33 Constitutional: The patient appears in no acute distress, alert, awake, non-toxic, well cp developed, well nourished. 00:33 Head/Face: Normocephalic, atraumatic. cp 00:33 Eyes: Periorbital structures: appear normal, Conjunctiva: normal, no exudate, no injection, Sclera: no appreciated abnormality, Lids and lashes: appear normal, bilaterally. 00:33 ENT: External ear(s): are unremarkable, Nose: is normal, Posterior pharynx: Airway: no evidence of obstruction, patent. 00:33 Chest/axilla: Inspection: normal, Palpation: is normal, no crepitus, no tenderness. 00:33 Cardiovascular: Rate: normal, Rhythm: regular. 00:33 Respiratory: the patient does not display signs of respiratory distress, Respirations: normal, no use of accessory muscles, no retractions, labored breathing, is not present, Breath sounds: are clear throughout, no decreased breath sounds. 00:33 Abdomen/GI: Inspection: abdomen appears normal, Bowel sounds: active, all quadrants, Palpation: soft, in all quadrants, moderate abdominal tenderness, in the anterior aspect of left lateral abdomen and left upper quadrant, rebound tenderness, is not appreciated, voluntary guarding, is not appreciated, involuntary guarding, is not appreciated. 00:33 Back: CVA tenderness, is absent. 00:33 Skin: no rash present. 02:33 Neck: Exam negative for acute changes. day 02:33 Musculoskeletal/extremity: DVT Exam: No signs of deep vein thrombosis. no pain, no day swelling, no tenderness, negative Homans' sign noted on exam, no appreciated bluish discoloration, no erythema, no increased warmth. Vital Signs: 00:19 BP 172 / 69; Pulse 93; Resp 16; Temp 98.7; Pulse Ox 99% ; Weight 72.57 kg; Height 4 ft. rv 11 in. (149.86 cm); Pain 5/10; 01:00 BP 159 / 66; Pulse 77; Resp 17; Pulse Ox 98% on R/A; rv 02:45 BP 138 / 86; Pulse 76; Resp 16; Temp 98.5; Pulse Ox 98% on R/A; rv 00:19 Body Mass Index 32.32 (72.57 kg, 149.86 cm) rv MDM: 00:14 Patient medically screened. cp 00:45 Differential diagnosis: nephrolithiasis, pyelonephritis, UTI, pancreatitis, cp diverticulitis. 02:28 Data reviewed: vital signs, nurses notes, lab test result(s), radiologic studies, CT day scan. Data interpreted: air sampling and monitoring: rate is 93 beats/min, rhythm is regular, Pulse oximetry: on room air is 99 %. Test interpretation: by ED physician or midlevel provider:. Counseling: I had a detailed discussion with the patient and/or guardian regarding: the historical points, exam findings, and any diagnostic results supporting the discharge/admit diagnosis, lab results, radiology results, the need for outpatient follow up, for definitive care, a family practitioner, a driver guide. 09/22 00:20 Order name: Urine Dipstick--Ancillary (enter results) ds4 09/22 00:20 Order name: Urine Dipstick-Ancillary; Complete Time: 02:10 EDMS 09/22 00:21 Order name: Basic Metabolic Panel 09/22 00:21 Order name: CBC with Diff; Complete Time: 01:16 cp 09/22 00:21 Order name: Hepatic Function; Complete Time: 01:25 cp 09/22 00:21 Order name: Lipase; Complete Time: 01:25 09/22 00:21 Order name: IV Saline Lock; Complete Time: 00:38 09/22 00:21 Order name: Urine Microscopic Only; Complete Time: 01:16 09/22 01:16 Interpretation: Reviewed. 09/22 00:22 Order name: Basic Metabolic Panel; Complete Time: 01:25 EDMS 09/22 01:26 Interpretation: Normal except: GLUC 153; BUN 21. 09/22 00:42 Order name: CT Abd/Pelvis - IV Contrast Only 09/22 02:23 Order name: CREATININE WHOLE BLOOD EDMS 09/22 00:21 Order name: Labs collected and sent; Complete Time: 00:38 cp Administered Medications: 00:38 Drug: Zofran (Ondansetron) 4 mg Route: IVP; Site: right antecubital; rv 02:44 Follow up: Response: No adverse reaction ea 00:38 Drug: morphine 2 mg Route: IVP; Site: right antecubital; rv 02:45 Follow up: Response: No adverse reaction; Marked relief of symptoms; Pain is decreased; rv RASS: Alert and Calm (0) 02:40 Drug: Pepcid 20 mg Route: IVP; Site: right antecubital; ea 02:44 Follow up: Response: Medication administered at discharge. rv Disposition: 02:28 Co-signature as Attending Physician, Raffi Jones MD I agree with the assessment and day plan of care. Disposition: 09/22/20 02:31 Discharged to Home. Impression: Abdominal tenderness, Type 2 diabetes mellitus. - Condition is Stable. - Discharge Instructions: Abdominal Pain, Adult, Abdominal Pain, Adult, [id number]-dp-Svyg. - Prescriptions for Bentyl 20 mg Oral Tablet - take 1 tablet by ORAL route every 6 hours As needed; 20 tablet. Pepcid 20 mg Oral Tablet - take 1 tablet by ORAL route every 12 hours for 10 days; 20 tablet. Valtrex 1 g Oral Tablet - take 1 tablet by ORAL route every 8 hours for 7 days; 21 tablet. - Medication Reconciliation Form, Thank You Letter, Antibiotic Education, Prescription Opioid Use form. - Follow up: Navid Gordon MD; When: 2 - 3 days; Reason: Recheck today's complaints, Continuance of care, Re-evaluation by your physician. - Problem is new. - Symptoms have improved. Signatures: Dispatcher [employer] EDRaffi Chaney MD MD cha Page, Corey, PA Cindy Rodrigues cp, RN RN Gilson Pastor RN RN rv Corrections: (The following items were deleted from the chart) 02:46 02:31 09/22/2020 02:31 Discharged to Home. Impression: Abdominal tenderness; Type 2 rv diabetes mellitus. Condition is Stable. Forms are Medication Reconciliation Form, Thank You Letter, Antibiotic Education, Prescription Opioid Use. Follow up: Navid Gordon; When: 2 - 3 days; Reason: Recheck today's complaints, Continuance of care, Re-evaluation by your physician. Problem is new. Symptoms have improved. day
[2020-09-22] MEDS ORDERED: FAMOTIDINE 20 MG/2 ML VIAL IV ONE (02:51)
[2020-09-22 02:56] VITALS: BP 138/86; TEMP 98.5; O2SAT 98
--- NOTE | 2020-09-22 10:57 | RAD REPORT ---
EXAM DESCRIPTION: CT Abdomen and Pelvis With Intravenous Contrast CLINICAL HISTORY: The patient is 60 years old and is Female; left flank pain TECHNIQUE: Axial computed tomography images of the abdomen and pelvis with intravenous contrast. S agittal and coronal reformatted images were created and reviewed. This CT exam was performed using one or more of the following dose reduction techniques: automated exposure control, adjustment of t he mA and/or kV according to patient size, and/or use of iterative reconstruction technique. COMPARISON: No relevant prior studies available. FINDINGS: LUNG BASES: Unremarkable. No mass. No consolidation. ABDOMEN: LIVER: The liver is mildly fatty and enlarged. GALLBLADDER AND BILE DUCTS: No calcified stones. No ductal dilation. PANCREAS: Fatty infiltration of the pancreas is present. SPLEEN: A splenule is present in the left upper quadrant. The spleen is unremarkable. ADRENALS: Unremarkable. No mass. KIDNEYS AND URETERS: Unremarkable. The kidneys enhance symmetrically. No obstructing renal or ur eteral calculus is seen. No hydronephrosis or hydroureter. No perinephric fluid or stranding. STOMACH AND BOWEL: The stomach is distended with food contents. The small bowel is relatively no rmal in caliber. A moderate amount stool is present throughout colon. There is no mucosal thickening or evidence of bowel obstruction. PELVIS: APPENDIX: The appendix is normal in caliber without surrounding inflammation. BLADDER: Unremarkable. No mass. REPRODUCTIVE: Unremarkable as visualized. ABDOMEN and PELVIS: INTRAPERITONEAL SPACE: Unremarkable. No free air. No significant fluid collection. BONES/JOINTS: No acute fracture. SOFT TISSUES: The soft tissues are normal. VASCULATURE: Atherosclerosis of the vasculature is present. The vessels are normal in caliber. No abdominal aortic aneurysm. LYMPH NODES: Unremarkable. No enlarged lymph nodes. IMPRESSION: No acute findings on this contrasted CT of the abdomen and pelvis to explain the patient 's symptoms. Electronically signed by: Sandhya Pardo MD 09/22/2020 2:06 AM AGILE JAVA DEVELOPER Due to temporary technical issues with the PACS/Fluency reporting system, reports are being signed by the in house radiologist without review as a courtesy to ensure prompt reporting. The interpreting r adiologist is fully responsible for the content of the report.
== END 2020-09-22 02:46 | disposition home or self-care (01) ==
LOC: ER 00:02
DX: R10.819 Abdominal tenderness, unspecified site (principal); E11.9 Type 2 diabetes mellitus without complications; I10 Essential (primary) hypertension
CPT/HCPCS: 85025; 80048; 36415; 82565; 80076; 83690; 74177; 96375; 96374; 99284; Q9967; J2270; J2405; 81003; 81015

== ENCOUNTER 2021-08-01 20:37 | Emergency (ER) | payer BC ==
--- OUTSIDE RECORDS SUMMARY | 2021-08-01 21:18 | XMS REPORT | Continuity of Care Document ---
:1960 Author Organization [facility] t Address [address] [place] [address] Care Team Providers Name Role Phone Pob, Lab Main Attending Clinician Unavailable Christine FERREIRA Attending Clinician Unavailable Doctor Unassigned, Name Attending Clinician Unavailable Payers Payer Name Policy Type Policy Number Effective Date Expiration Date S ource [employer] FED [employer] [id number] 2013 00:00:00 Problems This patient has no known problems. Allergies, Adverse Reactions, Alerts Allergy Allergy Status Severity Reaction(s) Onset Inactive Treating Comm ents Source Name Type Date Date Clinician NO KNOWN Drug Active [facility] of [facility] Medications This patient has no known medications. Procedures This patient has no known procedures. Encounters Start End Encounter Admission Attending Care Care Encounter Source Date/Time Date/Time Type Type Clinicians Facility Department ID 2020-02-03 2020-02-03 Welder Fitter Maldonado Davidson [facility] [id number] 14:22:20 14:37:20 Visit Lab Main [place] [id number] [place] [id number] [place] [id number] [address] 2020-02-03 2020-02-03 Outpatient R JADON [facility] [id number] [facility] 14:15:00 14:15:00 MOHINI Borja [facility] 2020-02-03 2020-02-03 Orders Doctor CARR [id number] 00:00:00 00:00:00 Only Unassigned, BENJI [id number] [place] [facility] [id number] Results This patient has no known results.
[2021-08-01] MEDS ORDERED: NA CHLORIDE 0.9% 1,000 ML ONE (21:44)
[2021-08-01] MEDS ORDERED: MORPHINE 2 MG/ML SYR ONE (21:44)
[2021-08-01] MEDS ORDERED: ONDANSETRON 4 MG/2 ML VIAL ONE (21:44)
[2021-08-01 22:48] LABS: Absolute Lymphocytes (CBC) 2.5 K/uL (0.7-4.9); Basophils % 0.2 % (0-1.3); Hematocrit 41.6 % (36.0-45.0); Lymphocytes % 32.1 % (15.3-44.8); MPV 7.1 fL (7.6-11.3); RBC Red Blood Cell Count 4.72 M/uL (3.86-4.86)
[2021-08-01 22:51] LABS: Albumin 3.8 g/dL (3.4-5.0); Bilirubin Total 0.3 mg/dL (0.2-1.0); Potassium 4.5 mmol/L (3.5-5.1); Protein, Total 8.6 g/dL (6.4-8.2)
--- NOTE | 2021-08-01 23:51 | EDPHYS ---
Physician Documentation [facility] Name: Gabriela Zabala Age: 61 yrs Sex: Female : 1960 Arrival Date: 08/01/2021 Time: 20:44 Bed 10 Private MD: ED Physician Raffi Jones HPI: 08/01 21:30 This 61 yrs old Female presents to ER via Wheelchair with complaints of Leg day Pain. 21:30 The patient presents with decreased range of motion, pain. The complaints affect the day lateral aspect of left knee and left knee. Context: The problem was sustained at an unknown site. Onset: The symptoms/episode began/occurred at an unknown time. Modifying factors: The symptoms are alleviated by elevating leg, remaining still, the symptoms are aggravated by movement, bending knee. Associated signs and symptoms: The patient has no apparent associated signs or symptoms. Treatment prior to arrival includes: greg wrap, eliquis. Severity of symptoms: At their worst the symptoms were moderate, in the emergency department the symptoms are unchanged. The patient has not experienced similar symptoms in the past. Historical: - Allergies: 20:53 No Known Allergies; ss - Home Meds: 20:53 Metformin Oral [Active]; clopidogrel Oral [Active]; atorvastatin Oral [Active]; ss losartan Oral [Active]; Insulin [Active]; - PMHx: 20:48 Asthma; Diabetes - NIDDM; High Cholesterol; Hypertension; ss - Immunization history:: Client reports receiving the 2nd dose of the Covid vaccine. - Social history:: Smoking status: Reported history of juuling and/or vaping. - Family history:: not pertinent. ROS: 21:30 Constitutional: Negative for fever, chills, and weight loss, Eyes: Negative for injury, day pain, redness, and discharge, ENT: Negative for injury, pain, and discharge, Neck: Negative for injury, pain, and swelling, Cardiovascular: Negative for chest pain, palpitations, and edema, Respiratory: Negative for shortness of breath, cough, wheezing, and pleuritic chest pain, Abdomen/GI: Negative for abdominal pain, nausea, vomiting, diarrhea, and constipation, Back: Negative for injury and pain, : Negative for injury, bleeding, discharge, and swelling, Skin: Negative for injury, rash, and discoloration, Neuro: Negative for headache, weakness, numbness, tingling, and seizure, Psych: Negative for depression, anxiety, suicide ideation, homicidal ideation, and hallucinations, Allergy/Immunology: Negative for hives, rash, and allergies, Endocrine: Negative for neck swelling, polydipsia, polyuria, polyphagia, and marked weight changes, Hematologic/Lymphatic: Negative for swollen nodes, abnormal bleeding, and unusual bruising. 21:30 MS/extremity: Positive for decreased range of motion, pain, tenderness, of the lateral aspect of left knee and left knee. Exam: 21:30 Constitutional: This is a well developed, well nourished patient who is awake, alert, day and in no acute distress. Head/Face: Normocephalic, atraumatic. Eyes: Pupils equal round and reactive to light, extra-ocular motions intact. Lids and lashes normal. Conjunctiva and sclera are non-icteric and not injected. Cornea within normal limits. Periorbital areas with no swelling, redness, or edema. ENT: Nares patent. No nasal discharge, no septal abnormalities noted. Tympanic membranes are normal and external auditory canals are clear. Oropharynx with no redness, swelling, or masses, exudates, or evidence of obstruction, uvula midline. Mucous membranes moist. Neck: Trachea midline, no thyromegaly or masses palpated, and no cervical lymphadenopathy. Supple, full range of motion without nuchal rigidity, or vertebral point tenderness. No Meningismus. Chest/axilla: Normal chest wall appearance and motion. Nontender with no deformity. No lesions are appreciated. Cardiovascular: Regular rate and rhythm with a normal S1 and S2. No gallops, murmurs, or rubs. Normal PMI, no JVD. No pulse deficits. Respiratory: Lungs have equal breath sounds bilaterally, clear to auscultation and percussion. No rales, rhonchi or wheezes noted. No increased work of breathing, no retractions or nasal flaring. Abdomen/GI: Soft, non-tender, with normal bowel sounds. No distension or tympany. No guarding or rebound. No evidence of tenderness throughout. Back: No spinal tenderness. No costovertebral tenderness. Full range of motion. Female : Normal external genitalia. Skin: Warm, dry with normal turgor. Normal color with no rashes, no lesions, and no evidence of cellulitis. Neuro: Awake and alert, GCS 15, oriented to person, place, time, and situation. Cranial nerves II-XII grossly intact. Motor strength 5/5 in all extremities. Sensory grossly intact. Cerebellar exam normal. Normal gait. Psych: Awake, alert, with orientation to person, place and time. Behavior, mood, and affect are within normal limits. 21:30 Musculoskeletal/extremity: ROM: limited active range of motion, limited passive range of motion, in the lateral aspect of left knee and left knee, Circulation is intact in all extremities. Sensation intact. Compartment Syndrome exam of affected extremity: is normal. Vital Signs: 20:49 BP 163 / 79; Pulse 93; Resp 16; Temp 98.1(O); Pulse Ox 100% on R/A; Weight 68.04 kg; ss Height 4 ft. 11 in. (149.86 cm); Pain 3/10; 21:20 BP 158 / 83; Pulse 95; Resp 17; Pulse Ox 99% on R/A; Pain 7/10; ld1 22:47 BP 148 / 86; Pulse 90; Resp 18; Pulse Ox 100% on R/A; ld1 20:49 Body Mass Index 30.30 (68.04 kg, 149.86 cm) ss MDM: 21:06 Patient medically screened. [facility] 21:32 Data reviewed: vital signs, nurses notes, lab test result(s), radiologic studies, day doppler, plain films. Data interpreted: desk monitor: rate is 95 beats/min, rhythm is regular, Pulse oximetry: on room air is 99 %. Test interpretation: by ED physician or midlevel provider: plain radiologic studies. Counseling: I had a detailed discussion with the patient and/or guardian regarding: the historical points, exam findings, and any diagnostic results supporting the discharge/admit diagnosis, lab results, radiology results, the need for outpatient follow up, for definitive care, a family practitioner, a orthopedic surgeon. 08/01 21:28 Order name: PT-INR day 08/01 22:18 Order name: Comprehensive Metabolic Panel; Complete Time: 23:14 EDSD 08/01 22:18 Order name: CBC with Automated Diff; Complete Time: 23:25 EDSD 08/01 22:20 Order name: Knee Left 3 View EDSD 08/01 22:20 Order name: Extremity Venous Uni Ltd EDSD 08/01 23:24 Order name: Knee Immobilizer; Complete Time: 23:47 day Administered Medications: 22:03 Drug: NS 0.9% 500 ml Route: IV; Rate: bolus; Site: right forearm; ld1 22:03 Follow up: Response: No adverse reaction ld1 23:22 Follow up: Response: No adverse reaction; IV Status: Completed infusion; IV Intake: ld1 500ml 22:03 Drug: morphine 2 mg Route: IVP; Site: right forearm; ld1 22:03 Follow up: Response: No adverse reaction ld1 22:03 Drug: Zofran (Ondansetron) 4 mg Route: IVP; Site: right forearm; ld1 22:03 Follow up: Response: No adverse reaction ld1 23:50 Drug: [place] (HYDROcodone-acetaminophen) (7.5 mg-325 mg) 1 tabs Route: PO; ld1 23:50 Follow up: Response: No adverse reaction ld1 Disposition Summary: 08/01/21 23:50 Discharge Ordered Location: Home day Problem: new day Symptoms: have improved day Condition: Stable day Diagnosis - Pain in left knee day - Effusion, left knee day - Osteoarthritis of knee, unspecified day Followup: day - With: Private Physician - When: 2 - 3 days - Reason: Recheck today's complaints, Continuance of care, Re-evaluation by your physician Followup: day - With: - When: 2 - 3 days - Reason: Recheck today's complaints, Continuance of care, Re-evaluation by your physician Discharge Instructions: - Discharge Summary Sheet day - Joint Pain day - Knee Effusion day - Acute Knee Pain, Adult day - How to Use Cold Therapy, Fuos-tm-Varg day - Knee Effusion, Vlmz-ug-Udin day - Arthritis, Vdsw-tm-Yrik ady - Ankle Pain day - How to Use Cold Therapy day - Acute Knee Pain, Adult, Rawl-kh-Lqxn day Forms: - Medication Reconciliation Form day - Thank You Letter day - Antibiotic Education day - Prescription Opioid Use [facility] - Work release form Prescriptions: - Tylenol-Codeine #3 300 mg-30 mg Oral - take 2 tablet by ORAL route every 4-6 hours; 20 tablet; Refills: 0, Product day Selection Permitted Signatures: Dispatcher [employer] EDSD Raffi Jones MD MD cha Smirch, Shelby, RN RN ss Milly Duenas RN RN ld1 Corrections: (The following items were deleted from the chart) 23:45 23:16 COMPREHENSIVE METABOLIC PANEL+C.LAB.BRZ ordered. EDMS EDMS 23:46 23:16 CBC+H.LAB.BRZ ordered. EDMS EDMS 23:53 23:16 Knee Left 3 View+RAD.RAD.BRZ ordered. EDMS EDMS
--- NOTE | 2021-08-01 23:51 | ER ---
Nurse's Notes [facility] Name: Gabriela Zabala Age: 61 yrs Sex: Female : 1960 Arrival Date: 08/01/2021 Time: 20:44 Bed 10 Private MD: Diagnosis: Pain in left knee;Effusion, left knee;Osteoarthritis of knee, unspecified Presentation: 08/01 20:49 Chief complaint: Patient states: "My leg, when I stand and straighten it out it hurts. ss When I go to sit down and it bends it hurts too. It's the L knee." Pt reports that pain began 3-4 days ago. No known injury. Coronavirus screen: Client denies travel out of the [place] in the last 14 days. Ebola Screen: Patient denies exposure to infectious person. Patient denies travel to an Ebola-affected area in the 21 days before illness onset. Initial Sepsis Screen: Does the patient meet any 2 criteria? No. Patient's initial sepsis screen is negative. Does the patient have a suspected source of infection? No. Patient's initial sepsis screen is negative. Risk Assessment: Do you want to hurt yourself or someone else? Patient reports no desire to harm self or others. Onset of symptoms was July 29, 2021. 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 Historical: - Allergies: 20:53 No Known Allergies; ss - Home Meds: 20:53 Metformin Oral [Active]; clopidogrel Oral [Active]; atorvastatin Oral [Active]; ss losartan Oral [Active]; Insulin [Active]; - PMHx: 20:48 Asthma; Diabetes - NIDDM; High Cholesterol; Hypertension; ss - Immunization history:: Client reports receiving the 2nd dose of the Covid vaccine. - Social history:: Smoking status: Reported history of juuling and/or vaping. - Family history:: not pertinent. Screenin:20 Abuse screen: Denies threats or abuse. Denies injuries from another. Nutritional ld1 screening: No deficits noted. Tuberculosis screening: No symptoms or risk factors identified. Fall Risk None identified. Assessment: 21:20 General: Appears in no apparent distress. comfortable, Behavior is calm, cooperative, ld1 appropriate for age. Pain: Complains of pain in left knee Pain does not radiate. Pain currently is 8 out of 10 on a pain scale. Quality of pain is described as sharp, shooting, Pain began gradually, Is continuous. Neuro: Level of Consciousness is awake, alert, obeys commands, Oriented to person, place, time, situation, Appropriate for age. Cardiovascular: Capillary refill < 3 seconds Patient's skin is warm and dry. Respiratory: Airway is patent Respiratory effort is even, unlabored, Respiratory pattern is regular, symmetrical. GI: Abdomen is round non-distended. : No signs and/or symptoms were reported regarding the genitourinary system. EENT: No signs and/or symptoms were reported regarding the EENT system. Derm: No signs and/or symptoms reported regarding the dermatologic system. Musculoskeletal: Reports pain in left knee. 22:47 Reassessment: Patient appears in no apparent distress at this time. No changes from ld1 previously documented assessment. Patient and/or family updated on plan of care and expected duration. Pain level reassessed. Vital Signs: 20:49 BP 163 / 79; Pulse 93; Resp 16; Temp 98.1(O); Pulse Ox 100% on R/A; Weight 68.04 kg; ss Height 4 ft. 11 in. (149.86 cm); Pain 3/10; 21:20 BP 158 / 83; Pulse 95; Resp 17; Pulse Ox 99% on R/A; Pain 7/10; ld1 22:47 BP 148 / 86; Pulse 90; Resp 18; Pulse Ox 100% on R/A; ld1 20:49 Body Mass Index 30.30 (68.04 kg, 149.86 cm) ED Course: 20:44 Patient arrived in ED. ja2 20:53 Triage completed. ss 20:53 Arm band placed on right wrist. ss 21:03 Milly Duenas, ALANIS is Primary Nurse. ld1 21:06 Raffi Jones MD is Attending Physician. [facility] 21:20 Patient has correct armband on for positive identification. Placed in gown. Bed in low ld1 position. Call light in reach. Side rails up X2. Pulse ox on. NIBP on. Door closed. Noise minimized. Warm blanket given. 21:20 No provider procedures requiring assistance completed. ld1 22:46 Knee Left 3 View In Process Unspecified. EDMS 23:05 Extremity Venous Uni Ltd In Process Unspecified. EDMS 23:18 US Extremity Venous Unilateral Ltd In Process Unspecified. EDMS 23:50 Trevor Tran MD is Referral Physician. [facility] 08/02 00:04 IV discontinued, intact, bleeding controlled, No redness/swelling at site. ld1 Administered Medications: 08/01 22:03 Drug: NS 0.9% 500 ml Route: IV; Rate: bolus; Site: right forearm; ld1 22:03 Follow up: Response: No adverse reaction ld1 23:22 Follow up: Response: No adverse reaction; IV Status: Completed infusion; IV Intake: ld1 500ml 22:03 Drug: morphine 2 mg Route: IVP; Site: right forearm; ld1 22:03 Follow up: Response: No adverse reaction ld1 22:03 Drug: Zofran (Ondansetron) 4 mg Route: IVP; Site: right forearm; ld1 22:03 Follow up: Response: No adverse reaction ld1 23:50 Drug: [place] (HYDROcodone-acetaminophen) (7.5 mg-325 mg) 1 tabs Route: PO; ld1 23:50 Follow up: Response: No adverse reaction ld1 Intake: 23:22 IV: 500ml; Total: 500ml. ld1 Outcome: 23:50 Discharge ordered by . day 08/02 00:04 Discharged to home ambulatory. ld1 Condition: stable Discharge instructions given to patient, Instructed on discharge instructions, follow up and referral plans. medication usage, Demonstrated understanding of instructions, follow-up care, medications, Prescriptions given X 1. 00:04 Patient left the ED. ld1 Signatures: Dispatcher [employer] Raffi Jimenez MD MD cha Smirch, Shelby RN RN Milly Duenas RN RN ld1 Samra Stacy Corrections: (The following items were deleted from the chart) 08/01 21:01 20:49 Acuity: DANITA 4 ss ss
[2021-08-02 00:18] LABS: Protime INR 1.03
[2021-08-02 00:22] VITALS: TEMP 98.1
[2021-08-02 00:25] VITALS: BP 148/86; O2SAT 100
--- NOTE | 2021-08-02 07:18 | RAD REPORT ---
EXAM DESCRIPTION: US - Extremity Venous Uni Ltd - 08/01/2021 11:05 pm CLINICAL HISTORY: leg pain COMPARISON: None. TECHNIQUE: Real-time sonographic evaluation of the left lower extremity deep venous system was perfo rmed. FINDINGS: Normal compressibility, flow augmentation, phasic flow and spontaneous flow are identified in the left lower extremity common femoral, superficial femoral, popliteal and posterior tibial vein s. No intraluminal filling defects seen. IMPRESSION: No DVT in the left lower extremity.
--- NOTE | 2021-08-02 11:43 | RAD REPORT ---
EXAM DESCRIPTION: RAD - Knee Left 3 View - 08/01/2021 10:46 pm CLINICAL HISTORY: 61 years, Female, leg pain COMPARISON: None. FINDINGS: 3 X-ray views of the Right knee (Frontal, lateral and oblique views) were performed. There is no evidence for fracture or dislocation. There are no gross intraosseous lesions. There is spur formation along the 3 compartments of the left knee with increase in trabecular height space an d sclerosis especially along the lateral compartment corresponding to mild/moderate osteoarthritis. T here is no joint effusion. There is no periostitis. IMPRESSION: No evidence for acute bony injuries. Moderate left knee osteoarthritis. Electronically signed by: Cruz Dorantes MD 08/01/2021 11:28 PM BUNDLE [employer]TER Due to temporary technical issues with the PACS/Fluency reporting system, reports are being signed by the in house radiologist without review as a courtesy to ensure prompt reporting. The interpreting r adiologist is fully responsible for the content of the report.
== END 2021-08-02 00:04 | disposition home or self-care (01) ==
LOC: ER 20:37
DX: M25.462 Effusion, left knee (principal); M17.12 Unilateral primary osteoarthritis, left knee; E11.9 Type 2 diabetes mellitus without complications; I10 Essential (primary) hypertension; Z79.4 Long term (current) use of insulin
CPT/HCPCS: 96361; 85025; 36415; 85610; 80053; 73562; 93971; 96375; 96374; 99284; J2270; J7030; J2405